=== PATIENT | male | born 1960 | race Caucasian/White ===

== ENCOUNTER 2021-01-07 06:22 | Day surgery (SDC) | payer OTHER ==
[2021-01-06 16:58] LABS: Absolute Lymphocytes (CBC) 3.1 K/uL (0.7-4.9); Basophils % 0.8 % (0-1.3); Hematocrit 45.1 % (39.6-49.0); Lymphocytes % 36.5 % (15.3-44.8); MPV 9.4 fL (7.6-11.3)
[2021-01-06 17:12] LABS: BUN Blood Urea Nitrogen 12 mg/dL (7-18); Bicarbonate 32 mmol/L (21-32); Glucose Level 233 mg/dL (74-106); Sodium Level 135 mmol/L (136-145)
--- NOTE | 2021-01-06 17:19 | RAD REPORT ---
EXAM DESCRIPTION: RAD - Chest Pa And Lat (2 Views) - 01/06/2021 4:38 pm CLINICAL HISTORY: preop COMPARISON: No comparisons FINDINGS: Lines: None. Lungs: No evidence of edema or pneumonia. Pleural: No significant pleural effusions or pneumothorax. Cardiac: The heart size is within normal limits. Bones: No acute fractures. Other: IMPRESSION: No acute cardiopulmonary disease.
[2021-01-07] MEDS ORDERED: Ringers Lactate 1,000 ML IV ONE ×2 (07:07→09:27)
[2021-01-07] MEDS ORDERED: CEFAZOLIN/SWI 1gm 0 GM/0 ML SYR ONE (07:07)
[2021-01-07] MEDS ORDERED: BUPIVACAINE 0.5% PF 10 ML VIAL ONE (07:39)
[2021-01-07] MEDS ORDERED: propofoL 200 MG/20 ML VIAL IV ONE (07:39)
[2021-01-07] MEDS ORDERED: GLYCOPYRROLATE 0.2 MG/ML SYR ONE (07:39)
[2021-01-07] MEDS ORDERED: MIDAZOLAM HCL 2 MG/2 ML INJ ONE (07:39)
[2021-01-07] MEDS ORDERED: ONDANSETRON 4 MG/2 ML VIAL ONE (07:40)
[2021-01-07] MEDS ORDERED: ROCURONIUM 50 MG/5 ML VIAL IV ONE (07:40)
[2021-01-07] MEDS ORDERED: FENTANYL CITR 250 MCG/5 ML ONE (07:40)
[2021-01-07] MEDS ORDERED: LIDOCAINE 1% MPF 5 ML VIAL ONE (07:41)
[2021-01-07] MEDS ORDERED: NEOSTIGMINE 1 MG/ML -5 ML ONE (07:42)
[2021-01-07] MEDS ORDERED: CEFAZOLIN/SWI 1gm 1 GM/10 ML SYR ONE (07:57)
[2021-01-07] MEDS ORDERED: EPHEDRINE SULF 50 MG/ML VIAL ONE (08:17)
[2021-01-07 09:30] VITALS: O2SAT 93
[2021-01-07] MEDS ORDERED: HYDROMORPHONE HCL 1 MG/ML INJ ONE (09:36)
[2021-01-07 10:18] VITALS: BP 109/75; TEMP 96.9
--- NOTE | 2021-01-07 10:27 | OP ---
Date of Procedure: 01/07/2021 Surgeon: Vance Sterling MD Flake Cutter Operator: Inocente Davey, financial assistance advisor certified. Preoperative Diagnosis: Incarcerated umbilical hernia. Postoperative Diagnosis: Incarcerated umbilical hernia. Procedure: Laparoscopic repair of incarcerated umbilical hernia. Estimated Blood Loss: Minimal. Specimen: Hernia sac. Findings: As above. Anesthesia: General. Complications: None. Disposition: The patient tolerated the procedure in stable condition and taken to Recovery in good g eneral condition. Operative Note: The patient was brought to the OR and placed in supine position. General anesthesia begun. The patient was prepped and draped in the usual sterile fashion. Marcaine 0.5% was infiltra sophie locally. A 15 blade was used to make a 2 cm left upper quadrant incision. Subcutaneous tissue w as divided. Fascia was identified and divided. #1 Vicryl stay suture was placed. Peritoneal cavity was entered with sharp and blunt dissection. A 12 mm trocar was placed into the peritoneal cavity u nder direct vision. Pneumoperitoneum was established and a 5 mm trocar placed in the left lower quad rant. Laparoscopy revealed just superior to the umbilicus a 3 cm defect with incarcerated omentum pr esent. LigaSure was used to divide the omentum away from the hernia sac and reduced it back into the peritoneal cavity. Then, a 4 cm incision was made over the hernia sac itself. Subcutaneous tissue was divided. Hernia sac was identified and excised from the fascial edges with good fascial edges ob tained and then the entire sac was sent to Pathology and then #1 PDS was used to close primarily the fascial defect. The pneumoperitoneum was reestablished and Bard oval shaped mesh was utilized in a s tandard fashion and deployed in the standard fashion, secured with . Complete coverage of the hernia defect with at least 3 cm borders on all sides were accomplished without any tension and then there was no evidence of bowel injury or bleeding noted subsequently. All trocars were removed under direct vision. Stay sutures were tied to each other facial defect. Subcutaneous wo unds were irrigated. Bleeding controlled with cautery. 3-0 chromic was used to approximate the subc utaneous tissue. Sagrario were used to close the skin. Sterile dressing was applied. The patient wa s awakened and taken to Recovery in good general condition. Discharge Note: The patient will go to Day Surgery and home when stable. Disposition: Home. Condition: Stable. Discharge Instructions: Resume home medications and diet. Activity as tolerated. No heavy lifting. Remove outer dressing in 2 days. Shower. Keep wound clean and dry. Follow up in my office in 1 w [place]. Call for appointment. Tylenol No. 3 one tablet p.o. q.4 p.r.n. pain. Abdominal binder as orde red. Incentive spirometry as ordered. /MODL Voice ID: [id number] Report ID: [id number]
[2021-01-07] MEDS ORDERED: HYDROCODONE/APAP 7.5/325 MG TAB ONE (10:44)
== END 2021-01-07 11:00 | disposition home or self-care (01) ==
LOC: OR 06:22
PROVIDERS: ATTEND Surgery
PROC: 0WQF4ZZ Repair Abdominal Wall, Percutaneous Endoscopic Approach (ICD-10-PCS; principal; 2021-01-07 07:30)
DX: K42.0 Umbilical hernia with obstruction, without gangrene (principal); Z20.822 Contact with and (suspected) exposure to COVID-19
CPT/HCPCS: 93005; 85025; 80048; 36415; 88302; 71046; 49653; U0003; J2704; J2250; J3010; J1170; J2710; J0690; J7120 ×2; J2405

== ENCOUNTER 2021-11-06 08:04 | Emergency (ER) | payer OTHER ==
[2021-11-06] MEDS ORDERED: MORPHINE 2 MG/ML SYR ONE (08:44)
[2021-11-06] MEDS ORDERED: dexAMETHasone 10 MG/ML VIAL ONE (08:44)
[2021-11-06] MEDS ORDERED: KETOROLAC 30 MG/ML INJ ONE (08:44)
--- NOTE | 2021-11-06 09:03 | RAD REPORT ---
EXAM DESCRIPTION: CT - Head Brain Wo Cont - 11/06/2021 8:54 am CLINICAL HISTORY: Numbness COMPARISON: None. TECHNIQUE: Computed axial tomography of the head was obtained. IV contrast was not requested. All CT scans are performed using dose optimization technique as appropriate and may include automated exposure control or mA/KV adjustment according to patient size. FINDINGS: An intracranial bleed is not seen . The ventricles are normal in caliber. No significant hypodense areas within the brain visualized No extra-axial fluid collection is noted. Fluid within the sinuses/ mastoids is not seen. IMPRESSION: No acute intracranial abnormality is seen. If patient's symptoms persist MRI of the bra in would be recommended.
[2021-11-06 09:06] LABS: Absolute Lymphocytes (CBC) 2.9 K/uL (0.7-4.9); Hematocrit 46.5 % (39.6-49.0); Lymphocytes % 34.2 % (15.3-44.8); MCV 96.9 fL (80-100); MPV 8.8 fL (7.6-11.3)
[2021-11-06 09:20] LABS: Potassium 4.2 mmol/L (3.5-5.1)
--- NOTE | 2021-11-06 09:21 | RAD REPORT ---
EXAM DESCRIPTION: RAD - Lumbar Spine 3 Views - 11/06/2021 9:08 am CLINICAL HISTORY: Back pain FINDINGS: No acute fracture or dislocation noted Mild anterior subluxation of L5 on S1 with spondylolysis. Mild to moderate spondylosis
--- NOTE | 2021-11-06 09:34 | ER ---
Nurse's Notes [facility] Name: Yogesh Shen Age: 61 yrs Sex: Male : 1960 Arrival Date: 11/06/2021 Time: 08:07 Bed 2 Private MD: Carl Hernandez Diagnosis: Paresthesia of skin;Radiculopathy, lumbosacral region Presentation: 11/06 08:17 Chief complaint: Patient states: left leg burning pain and numbness in left fingertips iw and left foot X 3 days. Coronavirus screen: At this time, the client does not indicate any symptoms associated with coronavirus-19. Ebola Screen: Patient negative for fever greater than or equal to 101.5 degrees Fahrenheit, and additional compatible Ebola Virus Disease symptoms Patient denies exposure to infectious person. Patient denies travel to an Ebola-affected area in the 21 days before illness onset. No symptoms or risks identified at this time. Initial Sepsis Screen: Does the patient meet any 2 criteria? No. Patient's initial sepsis screen is negative. Does the patient have a suspected source of infection? No. Patient's initial sepsis screen is negative. Risk Assessment: Do you want to hurt yourself or someone else? Patient reports no desire to harm self or others. Onset of symptoms was November 03, 2021. 08:17 Method Of Arrival: Ambulatory iw 08:17 Acuity: NARDA 3 iw Historical: - Allergies: 08:18 PENICILLINS; iw - Home Meds: 08:18 Metformin Oral [Active]; Lipitor Oral [Active]; iw - PMHx: 08:18 Diabetes mellitus; Hypercholesterolemia; iw - Immunization history:: Client reports receiving the 2nd dose of the Covid vaccine. - Social history:: Smoking status: Patient reports the use of cigarette tobacco products. - Family history:: not pertinent. - Hospitalizations: : No recent hospitalization is reported. Screenin:26 Abuse screen: Denies threats or abuse. Nutritional screening: No deficits noted. jd3 Tuberculosis screening: No symptoms or risk factors identified. VAN Screening: Arm Drift: Patient shows no arm weakness. Patient is VAN negative. Fall Risk Ambulatory Aid- None/Bed Rest/Nurse Assist (0 pts). Gait- Normal/Bed Rest/Wheelchair (0 pts) Mental Status- Oriented to own ability (0 pts). Total Rosa Fall Scale indicates No Risk (0-24 pts). Assessment: 08:24 General: Appears in no apparent distress. comfortable, Behavior is calm, cooperative, jd3 appropriate for age. Pain: Complains of pain in low back area, left hip and left leg Pain radiates to left leg Quality of pain is described as sharp, shooting. Neuro: Raman Agitation-Sedation Scale (RASS): 0 - Alert and Calm Level of Consciousness is awake, alert, obeys commands, Oriented to person, place, time, situation, Fur Pointer are equal bilaterally Moves all extremities. Full function Speech is normal, Facial symmetry appears normal, Pupils are PERRLA, Intact Reports numbness in left arm and left leg. Cardiovascular: Capillary refill < 3 seconds Patient's skin is warm and dry. Respiratory: Airway is patent Respiratory effort is even, unlabored, Respiratory pattern is regular, symmetrical, Denies cough, shortness of breath. GI: No signs and/or symptoms were reported involving the gastrointestinal system. : No signs and/or symptoms were reported regarding the genitourinary system. EENT: No signs and/or symptoms were reported regarding the EENT system. Derm: Skin is intact, Skin is dry, Skin is normal, Skin temperature is warm. Musculoskeletal: Circulation, motion, and sensation intact. Range of motion: intact in all extremities. 09:53 Reassessment: Patient appears in no apparent distress at this time. No changes from jd3 previously documented assessment. Patient and/or family updated on plan of care and expected duration. Pain level reassessed. Patient is alert, oriented x 3, equal unlabored respirations, skin warm/dry/pink. Vital Signs: 08:32 Pulse 79; Resp 18 S; Temp 98; Pulse Ox 97% on R/A; Pain 7/10; jd3 09:53 BP 144 / 96; Pulse 77; Resp 18; Pulse Ox 97% on R/A; jd3 NIH Stroke Scale Scores: 08:26 NIHSS Score: 0 jd3 ED Course: 08:07 Patient arrived in ED. as 08:08 Carl Hernandez DO is Private Physician. as 08:13 Blas Pedroza RN is Primary Nurse. jd3 08:15 Parth Rangel MD is Attending Physician. rn 08:18 Triage completed. iw 08:19 Arm band placed on. iw 08:29 Patient has correct armband on for positive identification. Bed in low position. Call jd3 light in reach. Side rails up X 1. Adult w/ patient. desk monitor on. Pulse ox on. NIBP on. 08:45 Inserted saline lock: 20 gauge in right forearm, using aseptic technique. Blood em6 collected. 08:56 CT Head Brain wo Cont In Process Unspecified. EDMS 09:10 XRAY Lumbar Spine (3 Views) In Process Unspecified. EDMS 09:53 No provider procedures requiring assistance completed. IV discontinued, intact, jd3 bleeding controlled, No redness/swelling at site. Pressure dressing applied. Administered Medications: 08:50 Drug: Decadron - Dexamethasone 10 mg Route: IVP; Site: right forearm; jd3 09:50 Follow up: Response: No adverse reaction jd3 08:50 Drug: Ketorolac 15 mg Route: IVP; Site: right forearm; jd3 09:50 Follow up: Response: No adverse reaction jd3 09:36 Not Given (Patient Refused): morphine 2 mg IVP once over 4 mins jd3 Medication: 08:29 VIS not applicable for this client. jd3 Outcome: 09:34 Discharge ordered by . rn 09:53 Discharged to home via wheelchair. jd3 09:53 Condition: stable 09:53 Discharge instructions given to patient, Instructed on discharge instructions, follow up and referral plans. medication usage, Demonstrated understanding of instructions, follow-up care, medications, Prescriptions given X 3. 09:55 Patient left the ED. jd3 NIH Stroke Scale - NIH Stroke Score Date: 11/06/2021 Time: 08:26 Total Score = 0 1a. Level of Consciousness (LOC) - 0(Alert) 1b. Level of Consciousness (LOC) (Month \T\ Age) - 0(Both) 1c. LOC Commands (Open \T\ Closes Eyes/Practicing Dermatologist) - 0(Both) 2. Best Gaze (Lateral Gaze Paresis) - 0(Normal) 3. Visual Field Loss - 0(No visual loss) 4. Facial Palsy - 0(Normal) 5a. Left Arm: Motor (10-second hold) - 0(No drift) 5b. Right Arm: Motor (10-second hold) - 0(No drift) 6a. Left Leg: Motor (5-second hold - always test supine) - 0(No drift) 6b. Right Leg: Motor (5-second hold - always test supine) - 0(No drift) 7. Limb Ataxia (finger/nose \T\ heel/nichols - test with eyes open) - 0(Absent) 8. Sensory Loss (pinprick arms/legs/face) - 0(Normal) 9. Best Language: Aphasia (description/naming/reading) - 0(No aphasia) 10. Dysarthria (speech clarity - read or repeat words) - 0(Normal) 11. Extinction and Inattention (visual/tactile/auditory/spatial/personal) - 0(No abnormality) Initials: jd3 Signatures: Dispatcher [employer] Elizabeth Eldridge Irene, Parth Velásquez RN, MD MD rn Davies, Jonathon, RN RN jKrystle Hartley RN RN em6
--- NOTE | 2021-11-06 09:34 | EDPHYS ---
Physician Documentation [facility] [place], [place] Name: Yogesh Shen Age: 61 yrs Sex: Male : 1960 Arrival Date: 11/06/2021 Time: 08:07 Bed 2 Private MD: [facility] ED Physician Parth Rangel HPI: 11/06 08:53 This 61 yrs old Male presents to ER via Ambulatory with complaints of Numbness. rn 08:53 The patient's problem is reported as paresthesias, in left upper extremity, in left rn lower extremity. Onset: The symptoms/episode began/occurred 4 day(s) ago. Duration: The episode is continuous. The symptoms are alleviated by nothing. The symptoms are aggravated by walking. Severity of symptoms: At their worst the symptoms were moderate in the emergency department the symptoms are unchanged. The patient has not experienced similar symptoms in the past. The patient has not recently seen a physician. Pt reports left hand tingling and left leg burning and tingling for 4 days. NO trauma. No weakness. Reports left leg hurts with ambulation. NO fall. NO bowel or bladder issues. No back or neck pain.. Historical: - Allergies: 08:18 PENICILLINS; iw - Home Meds: 08:18 Metformin Oral [Active]; Lipitor Oral [Active]; iw - PMHx: 08:18 Diabetes mellitus; Hypercholesterolemia; iw - Immunization history:: Client reports receiving the 2nd dose of the Covid vaccine. - Social history:: Smoking status: Patient reports the use of cigarette tobacco products. - Family history:: not pertinent. - Hospitalizations: : No recent hospitalization is reported. ROS: 08:53 Constitutional: Negative for fever, chills, and weight loss, Eyes: Negative for injury, rn pain, redness, and discharge, Neck: Negative for injury, pain, and swelling, Cardiovascular: Negative for chest pain, palpitations, and edema, Respiratory: Negative for shortness of breath, cough, wheezing, and pleuritic chest pain, Abdomen/GI: Negative for abdominal pain, nausea, vomiting, diarrhea, and constipation, Back: Negative for injury and pain, MS/Extremity: + tingling and burning sensation to LUE/LLE Skin: Negative for injury, rash, and discoloration, Neuro: Negative for headache, weakness, and seizure. Exam: 08:53 Constitutional: This is a well developed, well nourished patient who is awake, alert, rn and in no acute distress. Head/Face: Normocephalic, atraumatic. Neck: Trachea midline, no masses palpated, and no cervical lymphadenopathy. Supple, full range of motion without nuchal rigidity, or vertebral point tenderness. No Meningismus. Cardiovascular: Regular rate and rhythm. No pulse deficits. Respiratory: No increased work of breathing, no retractions or nasal flaring. Abdomen/GI: Soft, non-tender Skin: Warm, dry with normal turgor. Normal color with no rashes, no lesions, and no evidence of cellulitis. MS/ Extremity: Pulses equal, no cyanosis. Neurovascular intact. Full, normal range of motion. Equal circumference. + pain with straight-leg raise Neuro: Awake and alert, GCS 15, oriented to person, place, time, and situation. Cranial nerves II-XII grossly intact. Motor strength 5/5 in all extremities. Sensory grossly intact. Cerebellar exam normal. Vital Signs: 08:32 Pulse 79; Resp 18 S; Temp 98; Pulse Ox 97% on R/A; Pain 7/10; jd3 09:53 BP 144 / 96; Pulse 77; Resp 18; Pulse Ox 97% on R/A; jd3 NIH Stroke Scale Scores: 08:26 NIHSS Score: 0 jd3 MDM: 08:15 Patient medically screened. rn 09:33 Differential diagnosis: CVA, metabolic disorder, polyneuropathy, sciatica, rn radiculopathy. Data reviewed: vital signs, nurses notes, lab test result(s), radiologic studies, CT scan, plain films, and as a result, I will discharge patient. Counseling: I had a detailed discussion with the patient and/or guardian regarding: the historical points, exam findings, and any diagnostic results supporting the discharge/admit diagnosis, lab results, radiology results, the need for outpatient follow up, to return to the emergency department if symptoms worsen or persist or if there are any questions or concerns that arise at home. Response to treatment: the patient's symptoms have mildly improved after treatment, and as a result, I will discharge patient. Special discussion: I discussed with the patient/guardian in detail that at this point there is no indication for admission to the hospital. It is understood, however, that if the symptoms persist or worsen the patient needs to return immediately for re-evaluation. Based on the history and exam findings, there is no indication for further emergent testing or inpatient evaluation. I discussed with the patient/guardian the need to see the primary care provider for further evaluation of the symptoms. 11/06 08:25 Order name: CBC with Diff; Complete Time: 09: rn 11/06 08:25 Order name: Basic Metabolic Panel; Complete Time: : rn 11/06 08:25 Order name: CT Head Brain wo Cont; Complete Time: : rn 11/06 08:25 Order name: XRAY Lumbar Spine (3 Views); Complete Time: : rn 11/06 08:25 Order name: IV Start; Complete Time: 08:54 rn Administered Medications: 08:50 Drug: Decadron - Dexamethasone 10 mg Route: IVP; Site: right forearm; jd3 09:50 Follow up: Response: No adverse reaction jd3 08:50 Drug: Ketorolac 15 mg Route: IVP; Site: right forearm; jd3 09:50 Follow up: Response: No adverse reaction jd3 09:36 Not Given (Patient Refused): morphine 2 mg IVP once over 4 mins jd3 Disposition Summary: 11/06/21 09:34 Discharge Ordered Location: Home rn Problem: new rn Symptoms: have improved rn Condition: Stable rn Diagnosis - Paresthesia of skin rn - Radiculopathy, lumbosacral region rn Followup: rn - With: Private Physician - When: As needed - Reason: Recheck today's complaints, Re-evaluation by your physician Discharge Instructions: - Discharge Summary Sheet rn - Lumbosacral Radiculopathy rn - Paresthesia rn Forms: - Medication Reconciliation Form rn - Thank You Letter rn - Antibiotic burn nurse - Prescription Opioid Use rn Prescriptions: - Cyclobenzaprine 10 mg Oral Tablet - take 1 tablet by ORAL route every 8 hours As needed; 15 tablet; Refills: 0, rn Product Selection Permitted - Tramadol 50 mg Oral Tablet - take 1 tablet by ORAL route every 8 hours as needed; 12 tablet; Refills: 0, rn Product Selection Permitted - Medrol (Abdelrahman) 4 mg Oral Tablets, Dose Pack - take 1 tablet by ORAL route as directed - follow package instructions; 1 rn packet; Refills: 0, Product Selection Permitted NIH Stroke Scale - NIH Stroke Score Date: 11/06/2021 Time: 08:26 Total Score = 0 1a. Level of Consciousness (LOC) - 0(Alert) 1b. Level of Consciousness (LOC) (Month \T\ Age) - 0(Both) 1c. LOC Commands (Open \T\ Closes Eyes/Director [employer]eronaut[employer] Commission) - 0(Both) 2. Best Gaze (Lateral Gaze Paresis) - 0(Normal) 3. Visual Field Loss - 0(No visual loss) 4. Facial Palsy - 0(Normal) 5a. Left Arm: Motor (10-second hold) - 0(No drift) 5b. Right Arm: Motor (10-second hold) - 0(No drift) 6a. Left Leg: Motor (5-second hold - always test supine) - 0(No drift) 6b. Right Leg: Motor (5-second hold - always test supine) - 0(No drift) 7. Limb Ataxia (finger/nose \T\ heel/nichols - test with eyes open) - 0(Absent) 8. Sensory Loss (pinprick arms/legs/face) - 0(Normal) 9. Best Language: Aphasia (description/naming/reading) - 0(No aphasia) 10. Dysarthria (speech clarity - read or repeat words) - 0(Normal) 11. Extinction and Inattention (visual/tactile/auditory/spatial/personal) - 0(No abnormality) Initials: jd3 Signatures: Dispatcher [employer] Alexandria Flannery, Parth Velásquez RN, MD MD rn Davies, Jonathon, RN RN jd3
[2021-11-06 10:02] VITALS: TEMP 98; O2SAT 97
[2021-11-06 10:04] VITALS: BP 144/96
== END 2021-11-06 09:55 | disposition home or self-care (01) ==
LOC: ER 08:04
DX: M54.17 Radiculopathy, lumbosacral region (principal); E11.9 Type 2 diabetes mellitus without complications; E78.00 Pure hypercholesterolemia, unspecified; Z88.0 Allergy status to penicillin; Z72.0 Tobacco use
CPT/HCPCS: 85025; 80048; 36415; 70450; 72100; J1100; 96374; 96375; 99284; J2270

== ENCOUNTER 2023-10-14 08:12 | Emergency (ER) | payer OTHER ==
--- NOTE | 2023-10-14 09:28 | RAD REPORT ---
EXAM DESCRIPTION: RAD - Foot Left 3 View - 10/14/2023 9:13 am CLINICAL HISTORY: Left Foot pain FINDINGS: No fracture or dislocation is seen. 3.5 millimeter linear opaque structure lies adjacent to the base of the first distal phalanx on the l ateral view. This likely represents a foreign body. On the frontal and oblique views it is equivocally seen. Soft tissue swelling may indicate cellulitis. Bony destruction not seen
[2023-10-14 10:13] LABS: Absolute Basophils 0.1 K/uL (0-0.5); Absolute Eosinophils 0.3 K/uL (0-0.5); Absolute Lymphocytes (CBC) 2.4 K/uL (0.7-4.9); Absolute Monocytes 0.6 K/uL (0.1-1.3); Absolute Neutrophil 4.2 K/uL (1.8-8.0); Basophils % 0.9 % (0-1.3); Eosinophils % 3.3 % (0-4.4); Hematocrit 46.9 % (39.6-49.0); Hemoglobin 16.2 g/dL (13.6-17.9); Lymphocytes % 32.1 % (15.3-44.8); MCHC 34.6 g/dL (32.0-36.0); MCV 95.5 fL (80-100); MPV 9.2 fL (7.6-11.3); Monocytes % 8.5 % (3.3-12.3); Neutrophils % 55.2 % (41.7-73.7); Platelets 211 thou/uL (152-406); RBC Red Blood Cell Count 4.91 M/uL (4.33-5.43); Red Cell Distribution Width 12.6 % (12.1-15.2)
[2023-10-14 10:20] LABS: Anion Gap 9.3 mEq/L (5.0-15.0); Potassium 4.3 mEq/L (3.5-5.1)
--- NOTE | 2023-10-14 10:22 | EDPHYS ---
Physician Documentation [facility] Name: Yogesh Shen Age: 63 yrs Sex: Male : 1960 Arrival Date: 10/14/2023 Time: 08:12 Bed 5 Private MD: ED Physician Anthony Alcocer HPI: 10/13 09:31 This 63 yrs old Male presents to ER via Ambulatory with complaints of ec2 Infected Toe. 09:31 Patient arrives today for evaluation of left foot great toe swelling. Reports he was ec2 diagnosed with cellulitis yesterday and started on antibiotics however wanted a second opinion. Patient reports no fevers or chills, nausea or vomiting. Denies any foot trauma. Reports he is a smoker.. Historical: - Allergies: 08:37 PENICILLINS; hb - Home Meds: 08:37 Lipitor Oral [Active]; Metformin Oral [Active]; hb - PMHx: 08:37 diabetes mellitus; Hypercholesterolemia; hb - Immunization history:: Adult Immunizations up to date. - Infectious Disease History:: Denies. - Social history:: Smoking status: Patient reports the use of cigarette tobacco products, denies chronic smoking, but will smoke occasionally. ROS: 09:31 Constitutional: as per hpi ec2 Exam: 09:32 Constitutional: GEN: NAD Head: atraumatic Eyes: EOMI Ears: External ears are ec2 normal. CV: regular rate LUNGS: no respiratory distress ABD: non-distended SKIN: Left great toe with erythema noted at the base of the nailbed, warmth appreciated. Intact DP. MSK: no evidence of trauma NEURO: moves all extremities equally Vital Signs: 08:36 BP 127 / 80; Pulse 88; Resp 16; Temp 98; Pulse Ox 100% on R/A; Weight 113.85 kg; Height hb 5 ft. 11 in. ; Pain 5/10; 10:43 BP 121 / 80; Pulse 72; Resp 16; Pulse Ox 95% ; as6 08:36 Body Mass Index 35.01 (113.85 kg, 180.34 cm) hb 08:36 Pain Scale: Adult hb MDM: 08:19 Patient medically screened. ec2 09:32 Data reviewed: vital signs, nurses notes. ED course: Patient arrives today for ec2 evaluation of redness of his left great toe. Examination remarkable for skin findings as above. Will obtain lab work and foot x-ray. Differential diagnosis include vasculitis, cellulitis, osteomyelitis.. 09:34 ED course: Foot x-ray shows no evidence of bony destruction, likely cellulitis, ec2 possible foreign body. Would not go explored for foreign body retrieval. Pending lab work . 10:21 ED course: Metabolic profile is reassuring, CBC reassuring without leukocytosis. Will ec2 discharge home, patient already prescribed Augmentin and Bactrim for cellulitis. Return precautions given. Instructed to continue these medications as he has only taken one dose. . 10/13 08:58 Order name: CBC with Diff; Complete Time: 10:21 ec2 10/13 08:58 Order name: BMP; Complete Time: 10:21 ec2 10/13 08:58 Order name: Foot Left 3 View XRAY; Complete Time: 09:31 ec2 Administered Medications: No medications were administered Disposition Summary: 10/14/23 10:21 Discharge Ordered Condition: Stable ec2 Diagnosis - Cellulitis of left toe ec2 Followup: ec2 - With: Private Physician - When: - Reason: Re-evaluation by your physician Discharge Instructions: - Discharge Summary Sheet ec2 - Cellulitis, Adult ec2 Forms: - Medication Reconciliation Form ec2 - Antibiotic Education ec2 - Prescription Opioid Use ec2 - Patient Portal Instructions ec2 - Leadership Thank You Letter ec2 Signatures: Dispatcher [employer] Mer Maier, PAUL RN Anthony Beckwith MD MD ec2
--- NOTE | 2023-10-14 10:22 | ER ---
Nurse's Notes [facility] Name: Yogesh Shen Age: 63 yrs Sex: Male : 1960 Arrival Date: 10/14/2023 Time: 08:12 Bed 5 Private MD: Diagnosis: Cellulitis of left toe Presentation: 10/13 08:36 Chief complaint: left great toe redness and pain x 2 days. Coronavirus screen: At this hb time, the client does not indicate any symptoms associated with coronavirus-19. Ebola Screen: No symptoms or risks identified at this time. Initial Sepsis Screen: Does the patient meet any 2 criteria? No. Patient's initial sepsis screen is negative. Does the patient have a suspected source of infection? No. Patient's initial sepsis screen is negative. Risk Assessment: Do you want to hurt yourself or someone else? Patient reports no desire to harm self or others. Onset of symptoms was October 13, 2023. 08:36 Method Of Arrival: Ambulatory hb 08:36 Acuity: NARDA 4 hb Historical: - Allergies: 08:37 PENICILLINS; hb - Home Meds: 08:37 Lipitor Oral [Active]; Metformin Oral [Active]; hb - PMHx: 08:37 diabetes mellitus; Hypercholesterolemia; hb - Immunization history:: Adult Immunizations up to date. - Infectious Disease History:: Denies. - Social history:: Smoking status: Patient reports the use of cigarette tobacco products, denies chronic smoking, but will smoke occasionally. Screenin:48 [facility] ED Fall Risk Assessment (Adult) History of falling in the last 3 months, including since admission No falls in past 3 months (0 pts) Confusion or Disorientation No (0 pts) Intoxicated or Sedated No (0 pts) Impaired Gait No (0 pts) Mobility Assist Device Used No (0 pt) Altered Elimination No (0 pt) Score/Fall Risk Level 0 - 2 = Low Risk Oriented to surroundings, Maintained a safe environment, Hourly rounding (assess needs \T\ fall precautionary measures) done. Abuse screen: Denies threats or abuse. Denies injuries from another. Nutritional screening: No deficits noted. Tuberculosis screening: No symptoms or risk factors identified. Assessment: 09:47 General: Appears in no apparent distress. Behavior is calm, cooperative. Pain: Complains of pain in left first toe. Neuro: Level of Consciousness is awake, alert, obeys commands, Oriented to person, place, time, situation. Cardiovascular: Capillary refill < 3 seconds in bilateral fingers Patient's skin is warm and dry. Respiratory: Airway is patent Respiratory effort is even, unlabored. Derm: Skin is pink, warm \T\ dry. Musculoskeletal: swelling and redness present in L great toe. Vital Signs: 08:36 BP 127 / 80; Pulse 88; Resp 16; Temp 98; Pulse Ox 100% on R/A; Weight 113.85 kg; Height hb 5 ft. 11 in. ; Pain 5/10; 10:43 BP 121 / 80; Pulse 72; Resp 16; Pulse Ox 95% ; as6 08:36 Body Mass Index 35.01 (113.85 kg, 180.34 cm) hb 08:36 Pain Scale: Adult hb ED Course: 08:14 Patient arrived in ED. mr 08:19 Anthony Alcocer MD is Attending Physician. ec2 08:37 Triage completed. hb 08:38 Arm band placed on. hb 09:15 Foot Left 3 View XRAY In Process Unspecified. EDMS 09:47 Dede Edge, RN is Primary Nurse. ph 09:47 Initial lab(s) drawn, by ky, sent to lab. Inserted saline lock: 22 gauge in right ph forearm, using aseptic technique. Blood collected. 09:49 Patient has correct armband on for positive identification. Bed in low position. Call ph light in reach. Side rails up X 1. Pulse ox on. NIBP on. Door closed. Noise minimized. 09:49 BMP Sent. ph 09:49 CBC with Diff Sent. ph 10:42 Provided Education on: follow up. as6 10:42 No provider procedures requiring assistance completed. IV discontinued, intact, as6 bleeding controlled, No redness/swelling at site. Pressure dressing applied. Administered Medications: No medications were administered Medication: 10:42 VIS not applicable for this client. as6 Outcome: 10:21 Discharge ordered by . ec2 10:42 Discharged to home ambulatory, as6 10:42 Condition: stable 10:42 Discharge instructions given to patient, Instructed on discharge instructions, follow as6 up and referral plans. Demonstrated understanding of instructions, follow-up care, 10:43 Patient left the ED. as6 Signatures: Dispatcher [employer] EULALIA Natarajan Dayna, Reg Reg mr Minesh, Dede, RN RN ph Mer Leal, PAUL RN Storm Lion RN RN as6 Anthony Alcocer MD MD ec2
[2023-10-14 11:00] VITALS: BP 121/80; TEMP 98; O2SAT 95
== END 2023-10-14 10:43 | disposition home or self-care (01) ==
LOC: ER 08:12
DX: L03.032 Cellulitis of left toe (principal)
CPT/HCPCS: 36415; 80048; 85025; 99284